=== PATIENT | male | born 1985 | race American Indian/Alaskan Native ===

== ENCOUNTER 2021-11-13 13:42 | Emergency (ER) | payer SELFPAY ==
[2021-11-13] MEDS ORDERED: IBUPROFEN 800 MG TAB PO ONE (14:38)
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
--- NOTE | 2021-11-13 14:43 | XRay Report ---
RIGHT WRIST 4 VIEW(S) INDICATION / CLINICAL INFORMATION: pain sp injury COMPARISON: None available. FINDINGS: BONES / JOINT(S): No acute fracture or subluxation. No significant arthritis. SOFT TISSUES: No significant abnormality. ADDITIONAL FINDINGS: None. Signer Name: Sathya Corley DO Signed: 11/13/2021 2:38 PM Workstation Name: [id number]
[2021-11-13 15:20] VITALS: BP 112/61
== END 2021-11-13 15:20 | disposition home or self-care (01) ==
LOC: ED 13:42
DX: S60.211A Contusion of right wrist, initial encounter (principal); Z79.899 Other long term (current) drug therapy; X50.1XXA Overexertion from prolonged static or awkward postures, initial encounter; Y93.89 Activity, other specified; Y92.89 Other specified places as the place of occurrence of the external cause; Y99.8 Other external cause status
CPT/HCPCS: 99283